=== PATIENT | male | born 2000 | race Asian ===

== ENCOUNTER 2024-11-25 11:53 | Inpatient (IN) | payer OTHER ==
[~2024-11-25] VITALS: Ht 167.6 cm; Wt 59.1 kg
[2024-11-25] MEDS ORDERED: SERT-141 PO (12:17)
[2024-11-25 13:04] LABS: HEMOGLOBIN 15.5 g/dl (13.5-17.5); MEAN CORPUSCULAR HEMOGLOBIN 30.2 pg (27.0-33.0); MEAN CORPUSCULAR HGB CONC 34.4 g/dl (32.0-36.5); MEAN CORPUSCULAR VOLUME 87.5 fl (80.0-96.0); PLATELET COUNT, AUTOMATED 284 10^3/uL (150-450); RED BLOOD COUNT 5.14 10^6/uL (4.30-6.10); WHITE BLOOD COUNT 5.3 10^3/uL (4.0-10.0)
[2024-11-25 13:31] LABS: AMPHETAMINES LEVEL URINE NEGATIVE (NEGATIVE)
[2024-11-25 13:32] LABS: BARBITURATES URINE NEGATIVE (NEGATIVE); BENZODIAZEPINES URINE NEGATIVE (NEGATIVE); COCAINE METABOLITE URINE NEGATIVE (NEGATIVE); METHADONE URINE NEGATIVE (NEGATIVE); OPIATES URINE NEGATIVE (NEGATIVE)
[2024-11-25 13:33] LABS: CANNABINOIDS URINE NEGATIVE (NEGATIVE); ETHYL ALCOHOL (ETHANOL) 0.024 % (0.000-0.010); PHENCYCLIDINE URINE NEGATIVE (NEGATIVE)
[2024-11-25 13:34] LABS: SALICYLATE LEVEL < 3.0 MG/DL (<30)
[2024-11-25 13:35] LABS: ALBUMIN 4.6 G/DL (3.2-5.2); ALKALINE PHOSPHATASE 48 U/L (40-129); ALT/SGPT 24 U/L (7.0-40); AST/SGOT 26 U/L (<34); BILIRUBIN,DIRECT 0.1 MG/DL (<0.4); BILIRUBIN,TOTAL 0.4 MG/DL (0.3-1.2); BLOOD UREA NITROGEN 7 MG/DL (9-23); CALCIUM LEVEL 10.2 MG/DL (8.5-10.1); CARBON DIOXIDE LEVEL 28 MMOL/L (20-31); CHLORIDE LEVEL 106 MMOL/L (98-107); CREATININE FOR GFR 0.76 MG/DL (0.70-1.30); GLOMERULAR FILTRATION RATE > 60.0 (>60); GLUCOSE, FASTING 79 MG/DL (60-100); POTASSIUM SERUM 4.1 MMOL/L (3.5-5.1); SODIUM LEVEL 144 MMOL/L (136-145); TOTAL PROTEIN 8.2 G/DL (5.7-8.2)
[2024-11-25] MEDS ORDERED: ZOLO100T PO (15:02)
[2024-11-25] MEDS ORDERED: HOME MED LIST COMPLETE! XX SCH (15:05)
[2024-11-25 17:00] VITALS: BP 120/80
[2024-11-25] MEDS ORDERED: diphenhydrAMINE 25MG CAP PO PRN (19:15)
[2024-11-25] MEDS ORDERED: MAALOX 30 ML SUSP *UDC PO PRN (19:15)
[2024-11-25] MEDS ORDERED: MOM 30ML SUSPENSION UDC PO PRN (19:15)
[2024-11-25] MEDS ORDERED: traZODone 50 MG TAB PO PRN (19:15)
[2024-11-25] MEDS ORDERED: IBUPROFEN 400MG TAB PO PRN (19:15)
[2024-11-25] MEDS ORDERED: LORazepam 2 MG TAB PO PRN (19:15)
[2024-11-25] MEDS ORDERED: ACETAMINOPHEN 325 MG TAB PO PRN (19:15)
[2024-11-25 20:17] VITALS: BP 120/83
[2024-11-25] MEDS: THIAMINE 100 MG TAB PO SCH (20:51)
[2024-11-26 06:28] VITALS: BP 106/58; TEMP 98; O2SAT 98
[2024-11-26] MEDS: FOLIC ACID 1MG TAB PO SCH (08:33)
[2024-11-26] MEDS: MULTIVITAMINS/MINERALS THERAP 1 TAB PO SCH (08:33)
[2024-11-26 14:35] VITALS: BP 115/62
[2024-11-26 14:39] VITALS: BP 117/62; TEMP 97.8; O2SAT 99
[2024-11-26 20:20] VITALS: BP 117/62
[2024-11-26] MEDS: SERTRALINE 100 MG TAB PO SCH (20:23)
[2024-11-26] MEDS: SERTRALINE HCL 25 MG TABLET PO SCH (20:24)
[2024-11-26] MEDS ORDERED: SERTRALINE 100 MG TAB PO SCH (21:00)
[2024-11-27 06:38] VITALS: BP 114/57; TEMP 97.7; O2SAT 96
[2024-11-27 14:30] VITALS: BP 122/59
[2024-11-27 15:37] VITALS: BP 122/59; TEMP 98.2; O2SAT 97
[2024-11-27] MEDS: FAMOTIDINE 20 MG TAB PO SCH (21:09)
[2024-11-28 06:40] VITALS: BP 103/58; TEMP 97.5; O2SAT 97
[2024-11-28 06:49] VITALS: BP 103/58
[2024-11-28 15:36] VITALS: BP 121/69; TEMP 97.1; O2SAT 99
[2024-11-29 06:42] VITALS: BP 102/62; TEMP 97.6; O2SAT 97
[2024-11-29 09:24] VITALS: BP 102/62
[2024-11-29 15:08] VITALS: BP 112/72; TEMP 98.1; O2SAT 97
[2024-11-29] MEDS ORDERED: TRAZ-252 PO (23:51)
[2024-11-29] MEDS ORDERED: HYDR-3363 PO (23:51)
[2024-11-29] MEDS ORDERED: SERT50TA29 PO (23:51)
[2024-11-29] MEDS ORDERED: FAMO20TA PO (23:51)
[2024-11-30 06:24] VITALS: BP 109/57; TEMP 97.8; O2SAT 100
[2024-11-30] MEDS ORDERED: SERTRALINE HCL 50 MG TAB PO SCH (21:00)
== END 2024-11-30 11:12 | disposition home or self-care (01) | DRG 885 ==
LOC: M ED 11:53 → M ED INP 15:19 → M PSY 16:49
PROVIDERS: ADMIT Psychiatry & Neurology Psychiatry; ATTEND Internal Medicine
DX: F33.1 Major depressive disorder, recurrent, moderate (principal); F41.1 Generalized anxiety disorder; F10.20 Alcohol dependence, uncomplicated; K29.20 Alcoholic gastritis without bleeding; Z79.899 Other long term (current) drug therapy; Z91.51 Personal history of suicidal behavior

== ENCOUNTER → 2024-12-06 | Outpatient (CLI) | payer OTHER ==
[~2024-12-06] MED LIST: FAMO20TA PO; HYDR-3363 PO; SERT-141 PO; SERT50TA29 PO; TRAZ-252 PO; ZOLO100T PO
== END ==
LOC: M OUTALCOH 07:39
PROVIDERS: ATTEND Psychiatry & Neurology Psychiatry
DX: F10.20 Alcohol dependence, uncomplicated (principal)

== ENCOUNTER 2024-12-15 15:57 | Outpatient (RCR) | payer OTHER | END 2024-12-27 | LOC: M OUTALCOH 15:57 | PROVIDERS: ATTEND Psychiatry & Neurology Psychiatry | DX: F10.20 Alcohol dependence, uncomplicated (principal) ==

== ENCOUNTER 2025-03-16 14:27 | Outpatient (RCR) | payer OTHER | END 2025-03-29 | LOC: M OUTALCOH 14:27 | PROVIDERS: ATTEND Psychiatry & Neurology Psychiatry | DX: F10.20 Alcohol dependence, uncomplicated (principal) ==

== ENCOUNTER 2025-04-06 14:30 | Outpatient (RCR) | payer OTHER | END 2025-04-29 | LOC: M OUTALCOH 14:30 | PROVIDERS: ATTEND Psychiatry & Neurology Psychiatry | DX: F10.20 Alcohol dependence, uncomplicated (principal) ==